=== PATIENT | male | born 1990 | race Caucasian/White ===

== ENCOUNTER 2017-07-15 14:09 | Inpatient (IN) | payer BC ==
[~2017-07-15] VITALS: Ht 175.3 cm; Wt 100.0 kg
[~2017-07-15 14:09] MED LIST: AMOXICILLIN500 MG PO; BACTRIM DS1 TAB PO; CIPROFLOXACN500 MG PO; CLEOCIN150 MG PO; CLINDAMYCIN300 M1 PO; MOTRIN800 MG PO; NAPROSYN500 MG PO; NOVOLIN 70/30 SC; NOVOLIN N1000 UNITS SC; NOVOLIN R SC; ONDANSETRON4 MG PO; ULTRAM50 MG OR; VIBRAMYCIN100 M1 PO; ZOFRAN4 MG/TAB PO
[2017-07-15 15:03] LABS: HEMATOCRIT 38.9 % (39.0-50.0); HEMOGLOBIN 14.3 g/dl (14.0-18.0); IMMATURE GRANULOCYTES 0.5 % (0.0-1.0); MEAN CELL VOLUME 84.9 fL CALC (80.0-100.0); MEAN CORPUSCULAR HGB 31.2 pG CALC (26.0-32.0); MEAN CORPUSCULAR HGB CONC 36.8 g/L CALC (32.0-36.0); NEUT# 6.06 thou/uL (1.82-7.42); RED BLOOD COUNT 4.58 mill/uL (4.70-6.10); RED CELL DISTRI WIDTH 12.1 % (11.5-15.5)
[2017-07-15 15:22] LABS: ALBUMIN 4.2 g/dL (3.2-5.0); ALKALINE PHOSPHATASE 73 u/l (38-126); ANION GAP 18 (6-22 (CALC)); BILIRUBIN, TOTAL 0.6 mg/dL (0.0-1.4); BUN 12 mg/dL (9-20); BUN/CREATININE RATIO 18 (12-20 (CALC)); CALCIUM 9.6 mg/dL (8.4-10.2); CARBON DIOXIDE 27 mmol/l (22-30); CHLORIDE 102 mmol/l (95-108); CREATININE 0.7 mg/dL (0.7-1.3); GFR > 60 ML/MIN (>=60 (CALC)); GFR FOR AFR.AMER. > 60 ML/MIN (>=60 (CALC)); GLUCOSE 235 mg/dL (75-110); POTASSIUM 4.6 mmol/l (3.5-5.1); SGOT/AST 21 u/l (17-59); SGPT/ALT 35 u/l (21-72); SODIUM 142 mmol/l (137-146)
[2017-07-15] MEDS ORDERED: LOSARTAN POT50 MG PO (16:29)
[2017-07-15] MEDS ORDERED: PUMP INSULIN (16:33)
[2017-07-15 18:10] VITALS: BP 152/94
[2017-07-15 20:40] LABS: URINE BILIRUBIN - DIPSTICK NEGATIVE (NEGATIVE); URINE BLOOD DIPSTICK MODERATE (NEGATIVE); URINE CLARITY CLEAR; URINE COLOR YELLOW; URINE GLUCOSE - DIPSTICK 250 mg/dL (NEGATIVE); URINE KETONE NEGATIVE (NEGATIVE); URINE LEUK ESTERASE NEGATIVE (NEGATIVE); URINE NITRITE - DIPSTICK NEGATIVE (Negative); URINE PROTEIN - DIPSTICK 100 mg/dL (NEG-TRACE); URINE SPECIFIC GRAVITY 1.025; URINE UROBILINOGEN - DIPSTICK 0.2 E.U./dL (0.2)
[2017-07-15 20:49] LABS: URINE WBC 0-2 WBC/hpf (0-5)
[2017-07-16 04:28] VITALS: BP 132/81
[2017-07-16 06:04] LABS: HEMATOCRIT 36.3 % (39.0-50.0); MEAN CELL VOLUME 86.8 fL CALC (80.0-100.0); MEAN CORPUSCULAR HGB 31.1 pG CALC (26.0-32.0); MEAN CORPUSCULAR HGB CONC 35.8 g/L CALC (32.0-36.0); RED BLOOD COUNT 4.18 mill/uL (4.70-6.10); RED CELL DISTRI WIDTH 12.3 % (11.5-15.5)
[2017-07-16 06:24] LABS: ANION GAP 14 (6-22 (CALC)); BUN 13 mg/dL (9-20); BUN/CREATININE RATIO 16 (12-20 (CALC)); CALCIUM 8.6 mg/dL (8.4-10.2); CARBON DIOXIDE 31 mmol/l (22-30); CHLORIDE 101 mmol/l (95-108); CREATININE 0.8 mg/dL (0.7-1.3); GFR > 60 ML/MIN (>=60 (CALC)); GFR FOR AFR.AMER. > 60 ML/MIN (>=60 (CALC)); GLUCOSE 141 mg/dL (75-110); POTASSIUM 3.6 mmol/l (3.5-5.1); SODIUM 142 mmol/l (137-146)
[2017-07-16 07:30] VITALS: BP 135/89
[2017-07-16] MEDS ORDERED: DOXYCYCL HYC100 MG PO (10:43)
[2017-07-16 15:06] VITALS: BP 147/78
== END 2017-07-16 16:32 | disposition home or self-care (01) | DRG 639 ==
LOC: ED 14:09 → ED-I 16:16 → ED 16:32 → MS2 16:33
PROVIDERS: Emergency Medicine; ADMIT Internal Medicine; ATTEND Internal Medicine
DX: E10.628 Type 1 diabetes mellitus with other skin complications (principal); L97.529 Non-pressure chronic ulcer of other part of left foot with unspecified severity; E10.621 Type 1 diabetes mellitus with foot ulcer; I10 Essential (primary) hypertension; L03.032 Cellulitis of left toe; L85.9 Epidermal thickening, unspecified; S92.515A Nondisplaced fracture of proximal phalanx of left lesser toe(s), initial encounter for closed fracture; X58.XXXA Exposure to other specified factors, initial encounter; Z79.4 Long term (current) use of insulin; Z96.41 Presence of insulin pump (external) (internal); Z88.1 Allergy status to other antibiotic agents

== ENCOUNTER 2017-10-01 16:33 | Emergency (ER) | payer BC ==
[~2017-10-01] VITALS: Ht 175.3 cm; Wt 101.0 kg
[~2017-10-01 16:33] MED LIST changes: +DOXYCYCL HYC100 MG PO; +LOSARTAN POT50 MG PO; +PUMP INSULIN
[2017-10-01 17:50] LABS: HEMATOCRIT 37.7 % (39.0-50.0); HEMOGLOBIN 13.3 g/dl (14.0-18.0); IMMATURE GRANULOCYTES 0.4 % (0.0-1.0); MEAN CELL VOLUME 89.3 fL CALC (80.0-100.0); MEAN CORPUSCULAR HGB 31.5 pG CALC (26.0-32.0); MEAN CORPUSCULAR HGB CONC 35.3 g/L CALC (32.0-36.0); NEUT# 4.65 thou/uL (1.82-7.42); RED BLOOD COUNT 4.22 mill/uL (4.70-6.10); RED CELL DISTRI WIDTH 12.7 % (11.5-15.5)
[2017-10-01] MEDS ORDERED: INSULIN PUMP SC ×2 (17:55→17:57)
[2017-10-01 18:04] LABS: ALBUMIN 4.4 g/dL (3.2-5.0); ALKALINE PHOSPHATASE 72 u/l (38-126); AMYLASE < 30 u/l (30-110); ANION GAP 16 (6-22 (CALC)); BILIRUBIN, TOTAL 0.7 mg/dL (0.0-1.4); BUN 22 mg/dL (9-20); BUN/CREATININE RATIO 24 (12-20 (CALC)); CALCIUM 9.3 mg/dL (8.4-10.2); CARBON DIOXIDE 29 mmol/l (22-30); CHLORIDE 104 mmol/l (95-108); CREATININE 0.9 mg/dL (0.7-1.3); GFR > 60 ML/MIN (>=60 (CALC)); GFR FOR AFR.AMER. > 60 ML/MIN (>=60 (CALC)); GLUCOSE 245 mg/dL (75-110); LIPASE 41 u/l (23-300); SGOT/AST 22 u/l (17-59); SGPT/ALT 40 u/l (21-72); SODIUM 143 mmol/l (137-146); TOTAL PROTEIN 7.2 g/dL (6.3-8.2)
[2017-10-01] MEDS ORDERED: INSULIN PUMP (19:03)
[2017-10-01 20:09] LABS: URINE BILIRUBIN - DIPSTICK NEGATIVE (NEGATIVE); URINE BLOOD DIPSTICK MODERATE (NEGATIVE); URINE COLOR YELLOW; URINE GLUCOSE - DIPSTICK NEGATIVE (NEGATIVE); URINE KETONE NEGATIVE (NEGATIVE); URINE LEUK ESTERASE NEGATIVE (NEGATIVE); URINE NITRITE - DIPSTICK NEGATIVE (Negative); URINE PH 5.5 (4.5-8.0); URINE PROTEIN - DIPSTICK 100 mg/dL (NEG-TRACE); URINE SPECIFIC GRAVITY >=1.030; URINE UROBILINOGEN - DIPSTICK 0.2 E.U./dL (0.2)
[2017-10-01 20:12] LABS: URINE CLARITY CLEAR
[2017-10-01 20:20] LABS: URINE WBC 0-2 WBC/hpf (0-5)
[2017-10-01] MEDS ORDERED: IMODIUM2 MG PO (20:22)
[2017-10-01] MEDS ORDERED: ZOFRAN ODT4 MG PO (20:22)
[2017-10-01] MEDS ORDERED: NEXIUM40 M1 PO (20:22)
[2017-10-01 20:50] VITALS: BP 128/71
== END 2017-10-01 20:50 | disposition home or self-care (01) | DRG 392 ==
LOC: ED 16:33
PROVIDERS: Emergency Medicine
DX: K52.9 Noninfective gastroenteritis and colitis, unspecified (principal); K62.5 Hemorrhage of anus and rectum; R11.2 Nausea with vomiting, unspecified; R10.13 Epigastric pain
CPT/HCPCS: S0164

== ENCOUNTER 2018-03-29 11:07 | Emergency (ER) | payer BC ==
[~2018-03-29] VITALS: Ht 175.3 cm; Wt 95.5 kg
[~2018-03-29 11:07] MED LIST changes: +IMODIUM2 MG PO; +INSULIN PUMP; +INSULIN PUMP SC; +NEXIUM40 M1 PO; +ZOFRAN ODT4 MG PO
[2018-03-29] MEDS ORDERED: DIOVAN160 MG PO (11:14)
[2018-03-29 11:37] LABS: URINE BILIRUBIN - DIPSTICK NEGATIVE (NEGATIVE); URINE BLOOD DIPSTICK MODERATE (NEGATIVE); URINE COLOR YELLOW; URINE GLUCOSE - DIPSTICK >=1000 mg/dL (NEGATIVE); URINE KETONE NEGATIVE (NEGATIVE); URINE LEUK ESTERASE NEGATIVE (NEGATIVE); URINE NITRITE - DIPSTICK NEGATIVE (Negative); URINE PROTEIN - DIPSTICK 100 mg/dL (NEG-TRACE); URINE SPECIFIC GRAVITY 1.025; URINE UROBILINOGEN - DIPSTICK 0.2 E.U./dL (0.2)
[2018-03-29 11:39] LABS: URINE CLARITY SL CLOUDY
[2018-03-29 11:41] LABS: URINE EPITHELIAL CELLS FEW EPI/hpf (0-FEW); URINE MUCUS MODERATE hpf (NONE-FEW)
[2018-03-29 12:01] LABS: INFLUENZA A NONE DETECTED (NONE DETECT); INFLUENZA B NONE DETECTED (NONE DETECT)
[2018-03-29 12:25] VITALS: BP 140/88
== END 2018-03-29 12:25 | disposition home or self-care (01) | DRG 866 ==
LOC: ED 11:07
DX: B34.9 Viral infection, unspecified (principal); E11.9 Type 2 diabetes mellitus without complications; I10 Essential (primary) hypertension; Z79.4 Long term (current) use of insulin; Z96.41 Presence of insulin pump (external) (internal)

== ENCOUNTER 2018-08-16 09:00 | Outpatient (RCR) | payer BC ==
[~2018-08-16] VITALS: Ht 175.3 cm; Wt 102.1 kg
[~2018-08-16 09:00] MED LIST changes: +DIOVAN160 MG PO
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
== END 2018-08-16 10:00 | disposition home or self-care (01) | DRG 594 ==
LOC: OPWC 09:00
PROVIDERS: ATTEND Podiatrist Foot & Ankle Surgery
DX: L97.522 Non-pressure chronic ulcer of other part of left foot with fat layer exposed (principal); L97.512 Non-pressure chronic ulcer of other part of right foot with fat layer exposed; Z48.00 Encounter for change or removal of nonsurgical wound dressing
CPT/HCPCS: G0463

== ENCOUNTER 2019-03-17 19:19 | Emergency (ER) | payer BC ==
[~2019-03-17] VITALS: Ht 175.3 cm; Wt 111.0 kg
[2019-03-17] MEDS ORDERED: TELMISARTAN40 MG PO (19:42)
[2019-03-17] MEDS ORDERED: AVAPRO PO (19:42)
[2019-03-17 20:15] LABS: HEMATOCRIT 31.9 % (39.0-50.0); IMMATURE GRANULOCYTES 0.3 % (0.0-5.0); MEAN CELL VOLUME 87.6 fL CALC (80.0-100.0); MEAN CORPUSCULAR HGB 30.8 pG CALC (26.0-32.0); MEAN CORPUSCULAR HGB CONC 35.1 g/L CALC (32.0-36.0); NEUT# 3.88 thou/uL (1.82-7.42); RED BLOOD COUNT 3.64 mill/uL (4.70-6.10); RED CELL DISTRI WIDTH 12.8 % (11.5-15.5)
[2019-03-17 20:17] LABS: HEMOGLOBIN 11.2 g/dl (14.0-18.0)
[2019-03-17 20:32] LABS: ALBUMIN 3.9 g/dL (3.2-5.0); ALKALINE PHOSPHATASE 104 u/l (38-126); ANION GAP 14 (6-22 (CALC)); BILIRUBIN, TOTAL 0.4 mg/dL (0.0-1.4); BUN 29 mg/dL (9-20); BUN/CREATININE RATIO 24 (12-20 (CALC)); CARBON DIOXIDE 24 mmol/l (22-30); CHLORIDE 107 mmol/l (95-108); CREATININE 1.2 mg/dL (0.7-1.3); GFR > 60 ML/MIN (>=60 (CALC)); GFR FOR AFR.AMER. > 60 ML/MIN (>=60 (CALC)); POTASSIUM 4.1 mmol/l (3.5-5.1); SGOT/AST 18 u/l (17-59); SODIUM 141 mmol/l (137-146); TOTAL PROTEIN 6.7 g/dL (6.3-8.2)
[2019-03-17] MEDS ORDERED: COLCHICINE0.6 M2 PO (21:12)
[2019-03-17] MEDS ORDERED: PREDNISONE50 MG PO (21:12)
[2019-03-17 21:43] VITALS: BP 145/81
== END 2019-03-17 21:43 | disposition home or self-care (01) | DRG 554 ==
LOC: ED 19:19
PROVIDERS: Family Medicine
DX: M10.9 Gout, unspecified (principal); E78.5 Hyperlipidemia, unspecified; M25.571 Pain in right ankle and joints of right foot; M25.471 Effusion, right ankle

== ENCOUNTER 2023-03-06 21:12 | Emergency (ER) | payer SELFPAY ==
[~2023-03-06] VITALS: Ht 175.3 cm; Wt 97.5 kg
[~2023-03-06 21:12] MED LIST changes: +AVAPRO PO; +COLCHICINE0.6 M2 PO; +PREDNISONE50 MG PO; +TELMISARTAN40 MG PO
[2023-03-06 22:45] VITALS: BP 201/111
[2023-03-06 23:00] VITALS: BP 176/109
[2023-03-06] MEDS ORDERED: NOVOLOG100 UNIT/M (23:12)
[2023-03-06] MEDS ORDERED: BASAGLAR K100 UNIT/M SC (23:13)
[2023-03-06] MEDS ORDERED: LASIX 40 MG TAB40 MG PO (23:13)
[2023-03-06] MEDS ORDERED: AMLODIPINE BESYL5 MG PO (23:13)
[2023-03-06 23:15] VITALS: BP 180/111
[2023-03-06 23:30] VITALS: BP 191/117
[2023-03-06 23:36] VITALS: BP 195/117
[2023-03-06 23:45] VITALS: BP 197/116
[2023-03-06 23:53] LABS: BASO% 0.7 % (0-3); HEMATOCRIT 27.7 % (39.0-50.0); HEMOGLOBIN 9.6 g/dl (14.0-18.0); IMMATURE GRANULOCYTES 0.7 % (0.0-5.0); LYMPH% 27.7 % (15-41); MEAN CELL VOLUME 84.7 fL CALC (80.0-100.0); MEAN CORPUSCULAR HGB 29.4 pG CALC (26.0-32.0); MEAN CORPUSCULAR HGB CONC 34.7 g/dL CAL (32.0-36.0); MONO% 5.7 % (2-13); NEUT# 4.7 thou/uL (1.82-7.42); NEUT% 63.2 % (42-76); RED BLOOD COUNT 3.27 mill/uL (4.70-6.10); RED CELL DISTRI WIDTH 12.4 % (11.5-15.5)
[2023-03-07] VITALS (13 sets, daily range): BP systolic 161–204; BP diastolic 96–115
[2023-03-07 00:09] LABS: ALBUMIN 4.2 g/dL (3.2-5.0); ALKALINE PHOSPHATASE 83 u/l (38-126); AMYLASE 66 u/l (30-110); ANION GAP 18 (6-22 (CALC)); CARBON DIOXIDE 23 mmol/l (22-30); CHLORIDE 103 mmol/l (95-108); LIPASE 286 u/l (23-300); POTASSIUM 4.7 mmol/l (3.5-5.1); SGOT/AST 17 u/l (17-59); SODIUM 139 mmol/l (137-146); TOTAL PROTEIN 7.6 g/dL (6.3-8.2)
[2023-03-07 00:10] LABS: BUN 48 mg/dL (9-20)
[2023-03-07 00:12] LABS: BILIRUBIN, TOTAL 0.2 mg/dL (0.2-1.3); BUN/CREATININE RATIO 9 (12-20 (CALC)); CREATININE 5.1 mg/dL (0.7-1.3); GFR FOR AFR.AMER. 16 ML/MIN (>=60 (CALC)); GFR OTHER RACES 13 ML/MIN (>=60 (CALC))
== END 2023-03-07 04:26 | disposition home or self-care (01) ==
LOC: ED 21:12
PROVIDERS: Emergency Medicine
DX: H10.9 Unspecified conjunctivitis (principal); E11.65 Type 2 diabetes mellitus with hyperglycemia; I12.9 Hypertensive chronic kidney disease with stage 1 through stage 4 chronic kidney disease, or unspecified chronic kidney disease; E11.22 Type 2 diabetes mellitus with diabetic chronic kidney disease; N18.9 Chronic kidney disease, unspecified; H54.62 Unqualified visual loss, left eye, normal vision right eye; Z79.4 Long term (current) use of insulin; Z96.41 Presence of insulin pump (external) (internal); Z91.14 Patient's other noncompliance with medication regimen

== ENCOUNTER 2024-11-07 13:59 | Emergency (ER) | payer MEDICARE, MEDICAID ==
[~2024-11-07] VITALS: Ht 175.3 cm; Wt 106.0 kg
[2024-11-07] VITALS (11 sets, daily range): BP systolic 147–171; BP diastolic 83–106
[~2024-11-07 13:59] MED LIST changes: +AMLODIPINE BESYL5 MG PO; +BASAGLAR K100 UNIT/M SC; +LASIX 40 MG TAB40 MG PO; +NOVOLOG100 UNIT/M
[2024-11-07 15:34] LABS: BASO% 0.6 % (0-3); EOS% 2.6 % (0-8); IMMATURE GRANULOCYTES 0.4 % (0.0-5.0); MEAN CELL VOLUME 108.1 fL CALC (80.0-100.0); MEAN CORPUSCULAR HGB 35.2 pG CALC (26.0-32.0); MEAN CORPUSCULAR HGB CONC 32.5 g/dL CAL (32.0-36.0); MONO% 11.8 % (2-13); NEUT# 3.25 thou/uL (1.82-7.42); NEUT% 59.6 % (42-76); RED BLOOD COUNT 3.07 mill/uL (4.70-6.10); RED CELL DISTRI WIDTH 13.5 % (11.5-15.5)
[2024-11-07 15:44] LABS: HEMATOCRIT 33.2 % (39.0-50.0); HEMOGLOBIN 10.8 g/dl (14.0-18.0)
[2024-11-07 16:01] LABS: ALBUMIN 4.4 g/dL (3.2-5.0); POTASSIUM 5.1 mmol/l (3.5-5.1); TOTAL PROTEIN 7.3 g/dL (6.3-8.2)
[2024-11-07 16:02] LABS: BILIRUBIN, TOTAL 0.8 mg/dL (0.2-1.3); CREATININE 11.1 mg/dL (0.7-1.3)
[2024-11-07] MEDS ORDERED: ZPAK PO (16:09)
[2024-11-07] MEDS ORDERED: LEVOCETIRIZINE D5 MG PO (16:09)
== END 2024-11-07 16:57 | disposition home or self-care (01) ==
LOC: ED 13:59
PROVIDERS: Nurse Practitioner
DX: J06.9 Acute upper respiratory infection, unspecified (principal); I12.0 Hypertensive chronic kidney disease with stage 5 chronic kidney disease or end stage renal disease; E11.22 Type 2 diabetes mellitus with diabetic chronic kidney disease; N18.6 End stage renal disease; Z99.2 Dependence on renal dialysis; Z79.4 Long term (current) use of insulin; Z96.41 Presence of insulin pump (external) (internal); Z20.822 Contact with and (suspected) exposure to COVID-19